=== PATIENT | female | born 1970 | race Hispanic/Latino ===

== ENCOUNTER 2024-10-20 08:00 | Outpatient (RCR) | payer BC | END 2024-10-30 | LOC: PT 08:00 | PROVIDERS: ATTEND Physician Assistant | DX: M75.81 Other shoulder lesions, right shoulder (principal); M75.82 Other shoulder lesions, left shoulder ==

== ENCOUNTER 2024-11-24 08:00 | Outpatient (RCR) | payer BC | END 2024-11-30 | LOC: PT 08:00 | PROVIDERS: ATTEND Physician Assistant | DX: M75.81 Other shoulder lesions, right shoulder (principal); M75.82 Other shoulder lesions, left shoulder ==

== ENCOUNTER 2024-12-15 08:00 | Outpatient (RCR) | payer BC | END 2024-12-31 | LOC: PT 08:00 | PROVIDERS: ATTEND Physician Assistant | DX: M75.81 Other shoulder lesions, right shoulder (principal); M75.82 Other shoulder lesions, left shoulder ==